=== PATIENT | female | born 1945 | race Two or more races ===

== ENCOUNTER 2018-09-26 08:43 | Day surgery (SDC) | payer OTHER ==
[~2018-09-26 08:43] MED LIST: BETIMOL5 M1 OP; PANADOL EXTRA500 MG PO; ZANTAC150 M3 PO
[2018-09-26] MEDS ORDERED: PERCOCET 5-3251 EACH PO (09:17)
[2018-09-26] MEDS ORDERED: POLY119PG PO (09:19)
== END 2018-09-26 14:25 | disposition home or self-care (01) ==
LOC: CIR.AMB 08:43
DX: N81.6 Rectocele (principal); K64.8 Other hemorrhoids; R15.9 Full incontinence of feces